=== PATIENT | female | born 1970 | race Two or more races ===

== ENCOUNTER 2018-10-18 13:45 | Emergency (ER) | payer SELFPAY ==
--- NOTE | 2018-10-18 15:01 | ER Document Report ---
ED Medical Screen (RME) - General Chief Complaint: Headache Stated Complaint: HEADACHE Time Seen by Provider: 10/18/18 14:53 Mode of Arrival: Ambulatory Information source: Patient Notes: Patient states she is no longer concerned about her headache that is not the problem she is here today for pelvic pain bilaterally. She states that it feels like pressure and feels like something is going to fall out. She states she has bladder pain and pain inside of her vagina. She states she does not have any vaginal discharge and has had no unprotected sex. She states she has not burning with urination she just feels a lot of pressure and pain. States she has a history of migraines but that is not the problem right now. She states she has had a complete hysterectomy. She has a history of depression high blood pressure migraines and arthritis. I have greeted and performed a rapid initial assessment of this patient. A comprehensive ED assessment and evaluation of the patient, analysis of test results and completion of medical decision making process will be conducted by an additional ED providers. Dictation of this chart was performed using voice recognition software; therefor e, there may be some unintended grammatical errors. TRAVEL OUTSIDE OF THE [place] IN LAST 30 DAYS: No - Related Data Allergies/Adverse Reactions: No Known Allergies Allergy (Unverified 10/18/18 13:46) Past Medical History Renal/ Medical History: Denies: Hx Peritoneal Dialysis
[2018-10-18 15:38] LABS: APPEARANCE,URINE CLEAR; BILIRUBIN,URINE NEGATIVE (NEGATIVE); COLOR,URINE YELLOW; GLUCOSE, URINE NEGATIVE (NEGATIVE); KETONES,URINE NEGATIVE (NEGATIVE); LEUKOCYTE ESTERASE,URINE NEGATIVE (NEGATIVE); NITRITE,URINE NEGATIVE (NEGATIVE); PROTEIN,URINE NEGATIVE (NEGATIVE); URINE SPECIFIC GRAVITY 1.019; UROBILINOGEN,URINE NEGATIVE mg/dL (<2.0)
[2018-10-18 15:39] LABS: ABSOLUTE EOSINOPHILS # (AUTO) 0.1 10^3/uL (0.0-0.6); ABSOLUTE LYMPHOCYTES (AUTO) 1.6 10^3/uL (0.5-4.7); ABSOLUTE MONOCYTES (AUTO) 0.6 10^3/uL (0.1-1.4); ABSOLUTE NEUT (AUTO) 3.2 10^3/uL (1.7-8.2); BASOPHILS % (AUTO) 0.5 % (0-2); EOSINOPHILS % (AUTO) 2.3 % (0-6); HEMOGLOBIN 13.1 g/dL (12.0-15.5); LYMPHOCYTES % (AUTO) 28.6 % (13-45); MEAN CORPUSCULAR HEMOGLOBIN 26.1 pg (27.0-33.4); MEAN CORPUSCULAR HGB CONC 32.8 g/dL (32.0-36.0); MEAN CORPUSCULAR VOLUME 79 fl (80-97); MONOCYTES % (AUTO) 10.1 % (3-13); PLATELET COUNT 248 10^3/uL (150-450); RED BLOOD COUNT 5.04 10^6/uL (3.72-5.28); RED CELL DISTRIBUTION WIDTH 14.7 % (11.5-14.0); SEGMENTED NEUTROPHILS % (AUTO) 58.5 % (42-78); TOTAL CELLS COUNTED % (AUTO) 100 %; WHITE BLOOD COUNT 5.5 10^3/uL (4.0-10.5)
[2018-10-18 16:02] LABS: ALANINE AMINOTRANSFERASE 34 U/L (9-52); ALBUMIN 4.5 g/dL (3.5-5.0); ALKALINE PHOSPHATASE 71 U/L (38-126); ANION GAP 10 (5-19); ASPARTATE AMINO TRANSFERASE 28 U/L (14-36); BILIRUBIN,DIRECT 0.2 mg/dL (0.0-0.4); BILIRUBIN,TOTAL 0.5 mg/dL (0.2-1.3); BLOOD UREA NITROGEN 14 mg/dL (7-20); CALCIUM 9.6 mg/dL (8.4-10.2); CARBON DIOXIDE 27 mmol/L (22-30); CHLORIDE 104 mmol/L (98-107); GLUCOSE 75 mg/dL (75-110); TOTAL PROTEIN 7.8 g/dL (6.3-8.2)
== END 2018-10-18 17:50 | disposition left against medical advice (07) ==
LOC: ER 13:45
DX: R10.2 Pelvic and perineal pain (principal); R39.89 Other symptoms and signs involving the genitourinary system; I10 Essential (primary) hypertension; Z90.710 Acquired absence of both cervix and uterus; Z53.20 Procedure and treatment not carried out because of patient's decision for unspecified reasons
CPT/HCPCS: 36415; 80053; 81001; 85025; 87086; 99281

== ENCOUNTER 2018-12-27 21:41 | Emergency (ER) | payer MEDICAID ==
[2018-12-27] MEDS ORDERED: ASPIRIN 81 MG TABLET, CHEWABLE PO ONE (21:46)
--- NOTE | 2018-12-28 00:27 | ER Document Report ---
ED Cardiac - General Chief Complaint: Chest Pain Stated Complaint: CHEST PAIN,DIFFICULTY BREATHING Time Seen by Provider: 12/28/18 00:25 Mode of Arrival: Ambulatory Information source: Patient, Relative Notes: HISTORY OF PRESENT ILLNESS: Patient is a 48-year-old female with no pertinent past medical history who presents with sharp left-sided chest pain that radiates underneath the left tin st that is been ongoing for the past 7 to 8 years, however got worse approximately 2 years ago after a breast biopsy. Patient reports symptoms are intermittent and occur randomly, worsened with movement, always sharp and stabbing in nature. Location: Left chest Onset: Several years ago Alleviation: None Provocation: Movement Quality: Sharp and stabbing Radiation: None Severity: Currently mild, moderate at worst Timing: Intermittent History of CAD: None Associated symptoms: Denies fevers or chills, cough or congestion, no shortness of breath, no swelling of the extremities REVIEW OF SYSTEMS: CONSTITUTIONAL : Denies fever or chills, no sweats. Denies recent illness. EENT: Denies eye, ear, throat, or mouth pain or symptoms. Denies nasal or sinus congestion. CARDIOVASCULAR: Positive for chest pain. Denies swelling of the legs. RESPIRATORY: Denies cough, cold, or chest congestion. Denies shortness of breath or difficulty breathing. Denies wheezing. GASTROINTESTINAL: Denies abdominal pain. Denies nausea, vomiting, or diarrhea. Denies constipation. GENITOURINARY: Denies difficulty urinating, painful urination, burning, frequency, or blood in urine. MUSCULOSKELETAL: Denies neck or back pain or joint pain or swelling. SKIN: Denies rash or skin lesions. HEMATOLOGIC : Denies easy bruising or bleeding. LYMPHATIC: Denies swollen, enlarged glands. NEUROLOGICAL: Denies altered mental status or loss of consciousness. Denies headache. Denies weakness or paralysis or loss of use of either side. Denies problems with gait or speech. Denies sensory or motor loss. PSYCHIATRIC: Denies anxiety or stress or depression. All other systems reviewed and negative. PHYSICAL EXAMINATION: GENERAL: Well-appearing, well-nourished and in no acute distress. HEAD: Atraumatic, normocephalic. No scalp deformity, depression, or crepitance. EYES: Pupils are 3 mm and equal/round/reactive to light, extraocular movements intact, sclera anicteric, conjunctiva are normal. ENT: Nares patent bilaterally, oropharynx. Moist mucous membranes. No tonsil hypertrophy. NECK: Normal range of motion, supple without lymphadenopathy. LUNGS: Breath sounds present, equal, and clear to auscultation bilaterally. No wheezes, rales, or rhonchi. HEART: Regular rate and rhythm without murmurs, rubs, or gallops. 2+ peripheral pulses. Normal capillary refill. ABDOMEN: Soft, nontender, nondistended. Normoactive bowel sounds. No guarding, no rebound. No masses appreciated. BACK: Normal contour, no midline tenderness. Rectal exam deferred. GENITAL/PELVIC: Deferred. EXTREMITIES: Normal range of motion, no pitting or edema. No cyanosis. NEUROLOGICAL: No focal neurological deficits. Moves all extremities spontaneously and on command. PSYCH: Normal mood, normal affect. No suicidal thoughts/ideations. No homicidal thoughts/ideations. No hallucinations. SKIN: Warm, dry, normal turgor, no rashes or lesions noted. ASSESSMENT AND PLAN: This patient is a 48-year-old female who presents with sharp left sided chest pain that is reproducible on exam. Appears consistent with musculoskeletal origin. 1. Will obtain labs, urine, troponin, and chest x-ray. 2. Will give Toradol and reassess. TRAVEL OUTSIDE OF THE [place] IN LAST 30 DAYS: No - HPI Patient complains to provider of: Chest pain Was the onset of pain: Sudden Is the pain a: Chronic problem Chest pain location: Pleuritic, Under breast Quality of pain: Sharp, Stabbing Chest pain radiation location: None Severity now: Mild Severity at worst: Severe Pain level currently: 1 Cardiac risk factors: None Positive cardiac history: No Associated symptoms: None Exacerbated by: Torso movement Relieved by: Rest Similar symptoms previously: Yes Recently seen / treated by doctor: No - Related Data Allergies/Adverse Reactions: No Known Allergies Allergy (Unverified 10/18/18 13:46) Past Medical History - General Information source: Patient, Relative - Social History Smoking Status: Never Smoker Chew tobacco use (# tins/day): No Frequency of alcohol use: None Drug Abuse: None Lives with: Family Family History: Reviewed & Not Pertinent Patient has suicidal ideation: No Patient has homicidal ideation: No - Past Medical History Cardiac Medical History: Reports: None Pulmonary Medical History: Reports: None EENT Medical History: Reports: None Neurological Medical History: Reports: None Endocrine Medical History: Reports: None Renal/ Medical History: Reports: None. Denies: Hx Peritoneal Dialysis Malignancy Medical History: Reports: None GI Medical History: Reports: None Musculoskeletal Medical History: Reports None Skin Medical History: Reports None Psychiatric Medical History: Reports: None Traumatic Medical History: Reports: None Infectious Medical History: Reports: None Past Surgical History: Reports: Hx Hysterectomy - Immunizations Immunizations up to date: Yes Hx Diphtheria, Pertussis, Tetanus Vaccination: Yes Review of Systems - Review of Systems Constitutional: No symptoms reported EENT: No symptoms reported Cardiovascular: See HPI, Chest pain Respiratory: No symptoms reported Gastrointestinal: No symptoms reported Genitourinary: No symptoms reported Female Genitourinary: No symptoms reported Musculoskeletal: No symptoms reported Skin: No symptoms reported Hematologic/Lymphatic: No symptoms reported Neurological/Psychological: No symptoms reported -: Yes All other systems reviewed and negative Physical Exam - Vital signs Vitals: Temp Pulse Resp BP Pulse Ox 97.6 F 62 20 123/80 99 12/27/18 22:26 12/27/18 22:26 12/27/18 22:26 12/27/18 22:26 12/27/18 22:26 Interpretation: Normal Course - Re-evaluation Re-evalutation: 12/28/18 01:59 Blood work, including cardiac enzymes, is negative. Will discharge the patient home with strict return precautions and follow-up with primary care. All results were explained to and discussed with the patient, and all questions addressed an d answered. The patient voices both understanding and agreeing with the plan. - Vital Signs Vital signs: Temp Pulse Resp BP Pulse Ox 97.8 F 62 19 151/91 H 100 12/28/18 02:01 12/27/18 22:26 12/28/18 02:01 12/28/18 02:01 12/28/18 02:01 - Laboratory Result Diagrams: 12/28/18 00:35 12/28/18 00:35 Laboratory results interpreted by me: 12/28/18 12/28/18 00:35 00:35 MCH 26.5 L RDW 15.0 H AST 42 H - Diagnostic Test Radiology reviewed: Image reviewed, Reports reviewed - EKG Interpretation by Me EKG shows normal: Sinus rhythm Rate: Normal Rhythm: NSR [place]/QRS: No: Right axis deviation, Left axis deviation, RBBB, LBBB, IVCD, LAHB/LAFB, LPHB/LPFB, Bifasicular block Voltage: No: Increased voltage, Consistant with LVH, Decreased voltage, Throughout, Limb leads P Waves: No: DONA, LAE, Absent, AV Dissociation, Other Heart block present: No: 1st Degree, Mobitz 1, Mobitz 2, CHB (3rd degree block) When compared to previous EKG there are: No significant change Discharge - Discharge Clinical Impression: Costochondritis Condition: Good Disposition: HOME, SELF-CARE Instructions: Chest Wall Pain ([facility]) Additional Instructions: You have been evaluated in the Emergency Department for chest pain. While here, you had blood work that was normal and it is now safe to be discharged home. Please follow-up with your primary physician as instructed in one week to be rechecked. Return to the Emergency Department if you experience worsening pain, difficulty breathing, or any other concerning symptoms. Prescriptions: Diclofenac Sodium 75 mg PO BID #30 tablet. Print Language: Yoruba
[2018-12-28 00:47] LABS: ABSOLUTE EOSINOPHILS # (AUTO) 0.2 10^3/uL (0.0-0.6); ABSOLUTE LYMPHOCYTES (AUTO) 1.6 10^3/uL (0.5-4.7); ABSOLUTE MONOCYTES (AUTO) 0.5 10^3/uL (0.1-1.4); BASOPHILS % (AUTO) 0.9 % (0-2); EOSINOPHILS % (AUTO) 3.3 % (0-6); HEMATOCRIT 40.4 % (36.0-47.0); HEMOGLOBIN 13.5 g/dL (12.0-15.5); LYMPHOCYTES % (AUTO) 30.4 % (13-45); MEAN CORPUSCULAR HEMOGLOBIN 26.5 pg (27.0-33.4); MEAN CORPUSCULAR HGB CONC 33.3 g/dL (32.0-36.0); MEAN CORPUSCULAR VOLUME 80 fl (80-97); MONOCYTES % (AUTO) 8.7 % (3-13); PLATELET COUNT 257 10^3/uL (150-450); RED BLOOD COUNT 5.08 10^6/uL (3.72-5.28); SEGMENTED NEUTROPHILS % (AUTO) 56.7 % (42-78); TOTAL CELLS COUNTED % (AUTO) 100 %; WHITE BLOOD COUNT 5.3 10^3/uL (4.0-10.5)
[2018-12-28] MEDS ORDERED: ASPIRIN 81 MG TABLET, CHEWABLE ONE (00:55)
[2018-12-28 01:02] LABS: ALBUMIN 4.5 g/dL (3.5-5.0); ALKALINE PHOSPHATASE 84 U/L (38-126); ANION GAP 9 (5-19); ASPARTATE AMINO TRANSFERASE 42 U/L (14-36); BILIRUBIN,DIRECT 0.1 mg/dL (0.0-0.4); BILIRUBIN,TOTAL 0.2 mg/dL (0.2-1.3); BLOOD UREA NITROGEN 13 mg/dL (7-20); CALCIUM 9.7 mg/dL (8.4-10.2); CARBON DIOXIDE 28 mmol/L (22-30); CHLORIDE 102 mmol/L (98-107); CREATINE KINASE 63 U/L (30-135); GLUCOSE 92 mg/dL (75-110); POTASSIUM 4.2 mmol/L (3.6-5.0); TOTAL PROTEIN 7.9 g/dL (6.3-8.2)
[2018-12-28 01:15] LABS: CREATINE KINASE MB < 0.22 ng/mL (<4.55); TROPONIN I < 0.012 ng/mL
[2018-12-28] MEDS ORDERED: KETOROLAC TROMETHAMINE 60 MG/2 ML SDV IM ONE (01:52)
[2018-12-28 02:17] VITALS: BP 151/91
--- NOTE | 2018-12-28 21:45 | EKG REPORT ---
SEVERITY:- OTHERWISE NORMAL ECG - SINUS RHYTHM BORDERLINE LEFT AXIS DEVIATION : Confirmed by: Mallory Rayo MD 28-Dec-2018 21:45:02
== END 2018-12-28 02:31 | disposition home or self-care (01) ==
LOC: ER 21:41
DX: M94.0 Chondrocostal junction syndrome [Tietze] (principal); R07.9 Chest pain, unspecified
CPT/HCPCS: 93005; 36415; 82553; 82550; 85025; 80053; 84484; 93010; J1885

== ENCOUNTER 2019-02-02 15:29 | Emergency (ER) | payer MEDICAID ==
--- NOTE | 2019-02-02 16:04 | ER Document Report ---
ED Medical Screen (RME) - General Chief Complaint: right flank pain Stated Complaint: PAIN RIGHT SIDE OF BODY Time Seen by Provider: 02/02/19 15:47 Mode of Arrival: Ambulatory Information source: Patient Notes: 48-year-old female presented to ED for complaint of right upper quadrant right flank pain since 2011 worse for the last 3 weeks. She states she had a hysterectomy in 2011 and has had pain off and on since then. She states that one time she was told she had some sand in something and then she was told that her uterus was dropping down and that she had some cyst somewhere so her female parts were removed. Interview was through an card lacer #[id number]. Patient states she has a history of depression migraines and arthritis. She denies use of tobacco alcohol or street drugs. I have greeted and performed a rapid initial assessment of this patient. A comprehensive ED assessment and evaluation of the patient, analysis of test results and completion of medical decision making process will be conducted by an additional ED providers. TRAVEL OUTSIDE OF THE [place] IN LAST 30 DAYS: No - Related Data Allergies/Adverse Reactions: No Known Allergies Allergy (Unverified 10/18/18 13:46) Past Medical History - Social History Frequency of alcohol use: None Drug Abuse: None Renal/ Medical History: Denies: Hx Peritoneal Dialysis Past Surgical History: Reports: Hx Hysterectomy - Immunizations Immunizations up to date: Yes Hx Diphtheria, Pertussis, Tetanus Vaccination: Yes Physical Exam - Vital signs Vitals: Temp Pulse Resp BP Pulse Ox 98.5 F 70 18 125/66 99 02/02/19 15:34 02/02/19 15:34 02/02/19 15:34 02/02/19 15:34 02/02/19 15:34 Course - Vital Signs Vital signs: Temp Pulse Resp BP Pulse Ox 98.5 F 70 18 125/66 99 02/02/19 15:34 02/02/19 15:34 02/02/19 15:34 02/02/19 15:34 02/02/19 15:34
[2019-02-02 16:27] LABS: ABSOLUTE EOSINOPHILS # (AUTO) 0.1 10^3/uL (0.0-0.6); ABSOLUTE LYMPHOCYTES (AUTO) 1.2 10^3/uL (0.5-4.7); ABSOLUTE MONOCYTES (AUTO) 0.5 10^3/uL (0.1-1.4); ABSOLUTE NEUT (AUTO) 3.9 10^3/uL (1.7-8.2); BASOPHILS % (AUTO) 0.4 % (0-2); EOSINOPHILS % (AUTO) 2.2 % (0-6); HEMATOCRIT 38.4 % (36.0-47.0); HEMOGLOBIN 13.2 g/dL (12.0-15.5); LYMPHOCYTES % (AUTO) 21.1 % (13-45); MEAN CORPUSCULAR HEMOGLOBIN 27.4 pg (27.0-33.4); MEAN CORPUSCULAR HGB CONC 34.3 g/dL (32.0-36.0); MEAN CORPUSCULAR VOLUME 80 fl (80-97); MONOCYTES % (AUTO) 8.3 % (3-13); PLATELET COUNT 238 10^3/uL (150-450); RED CELL DISTRIBUTION WIDTH 14.4 % (11.5-14.0); TOTAL CELLS COUNTED % (AUTO) 100 %; WHITE BLOOD COUNT 5.8 10^3/uL (4.0-10.5)
[2019-02-02 16:29] LABS: APPEARANCE,URINE SLIGHTLY-CLOUDY; BILIRUBIN,URINE NEGATIVE (NEGATIVE); COLOR,URINE YELLOW; GLUCOSE, URINE NEGATIVE (NEGATIVE); KETONES,URINE NEGATIVE (NEGATIVE); PROTEIN,URINE NEGATIVE (NEGATIVE); URINE SPECIFIC GRAVITY 1.016; UROBILINOGEN,URINE NEGATIVE mg/dL (<2.0)
[2019-02-02 16:42] LABS: ALBUMIN 4.5 g/dL (3.5-5.0); ALKALINE PHOSPHATASE 78 U/L (38-126); ANION GAP 10 (5-19); ASPARTATE AMINO TRANSFERASE 43 U/L (14-36); BILIRUBIN,DIRECT 0.2 mg/dL (0.0-0.4); BILIRUBIN,TOTAL 0.7 mg/dL (0.2-1.3); BLOOD UREA NITROGEN 13 mg/dL (7-20); CALCIUM 9.8 mg/dL (8.4-10.2); CARBON DIOXIDE 26 mmol/L (22-30); CHLORIDE 105 mmol/L (98-107); GLUCOSE 82 mg/dL (75-110); POTASSIUM 4.1 mmol/L (3.6-5.0)
--- NOTE | 2019-02-02 16:44 | RADIOLOGY REPORT (SQ) ---
EXAM DESCRIPTION: U/S ABDOMEN LIMITED W/O DOP COMPLETED DATE/TIME: 02/02/2019 4:36 pm REASON FOR STUDY: right upper quad COMPARISON: None. TECHNIQUE: Dynamic and static grayscale images acquired of the abdomen and recorded on PACS. Additio nal selected color Doppler and spectral images recorded. LIMITATIONS: None. FINDINGS: PANCREAS: No masses. Visualized pancreatic duct normal caliber. LIVER: Normal size Echo texture normal. No focal masses. LIVER VASCULATURE: Normal directional flow of the main portal vein and hepatic veins. GALLBLADDER: No stones. Normal wall thickness. No pericholecystic fluid. ULTRASOUND-DETECTED NOLEN'S SIGN: Negative. INTRAHEPATIC DUCTS AND COMMON DUCT: CBD and intrahepatic ducts normal caliber. No filling defects. INFERIOR VENA CAVA: Normal flow. AORTA: No aneurysm. RIGHT KIDNEY: Normal size. Normal echogenicity. No solid or suspicious masses. No hydronephros is. No calcifications. PERITONEAL AND RIGHT PLEURAL SPACE: No ascites or effusions. OTHER: No other significant findings. IMPRESSION: NORMAL RIGHT UPPER QUADRANT ULTRASOUND VISUALIZED. TECHNICAL DOCUMENTATION: JOB ID: [id number] [employer]- All Rights Reserved Reading location - IP/workstation name: [email or web address]
[2019-02-02] MEDS ORDERED: NORMAL SALINE 1000 ML 1,000 ML IV ONE (18:57)
[2019-02-02] MEDS ORDERED: FENTANYL CITRATE INJ/PF 100 MCG/2 ML AMPUL IV ONE (18:57)
--- NOTE | 2019-02-02 18:59 | ER Document Report ---
ED General - General Mode of Arrival: Ambulatory Information source: Patient TRAVEL OUTSIDE OF THE [place] IN LAST 30 DAYS: No - HPI Onset: Other - 7 years, worse x3 weeks Onset/Duration: Worse Quality of pain: Sharp Pain Level: 4 Associated symptoms: Other - Right flank, right lower quadrant. denies: Chest pain, Nonproductive cough, Productive cough, Fever, Nausea, Vomiting Exacerbated by: Denies Relieved by: Denies Similar symptoms previously: Yes Recently seen / treated by doctor: No <JOSE LUIS POWER - Last Filed: 02/02/19 20:21> <CHRIS BENNETT - Last Filed: 02/02/19 23:11> - General Chief Complaint: right flank pain Stated Complaint: PAIN RIGHT SIDE OF BODY Time Seen by Provider: 02/02/19 15:47 Primary Care Provider: DERRICK VAUGHAN MD [Primary Care Provider] - Follow up as needed Notes: Patient presents complaining of right flank pain that radiates around to right lower quadrant for the past 7 years. Patient states pain worsened over the past 3 weeks. Patient does report some dysuria. No fever, no nausea vomiting or diarrhea. Patient states symptoms started after having a hysterectomy. (JOSE LUIS POWER) - Related Data Allergies/Adverse Reactions: No Known Allergies Allergy (Unverified 10/18/18 13:46) Past Medical History - General Information source: Patient - Social History Smoking Status: Never Smoker Frequency of alcohol use: None Drug Abuse: None Occupation: None Lives with: Family Family History: Reviewed & Not Pertinent Patient has suicidal ideation: No Patient has homicidal ideation: No Neurological Medical History: Reports: Hx Migraine Renal/ Medical History: Denies: Hx Peritoneal Dialysis Past Surgical History: Reports: Hx Hysterectomy - Immunizations Immunizations up to date: Yes Hx Diphtheria, Pertussis, Tetanus Vaccination: Yes <JOSE LUIS POWER - Last Filed: 02/02/19 20:21> Review of Systems - Review of Systems Constitutional: No symptoms reported. denies: Fever, Recent illness EENT: No symptoms reported Cardiovascular: No symptoms reported. denies: Chest pain Respiratory: No symptoms reported Gastrointestinal: Abdominal pain. denies: Diarrhea, Nausea, Vomiting Genitourinary: Dysuria, Flank pain Female Genitourinary: No symptoms reported. denies: Vaginal discharge Musculoskeletal: Back pain Skin: No symptoms reported Hematologic/Lymphatic: No symptoms reported Neurological/Psychological: No symptoms reported <JOSE LUIS POWER - Last Filed: 02/02/19 20:21> Physical Exam - General General appearance: Appears well, Alert In distress: None - HEENT Head: Normocephalic, Atraumatic Eyes: Normal Conjunctiva: Normal Neck: Normal, Supple. No: Lymphadenopathy - Respiratory Respiratory status: No respiratory distress Chest status: Nontender Breath sounds: Normal. No: Rales, Rhonchi, Wheezing Chest palpation: Normal - Cardiovascular Rhythm: Regular Heart sounds: S1 appreciated, S2 appreciated Murmur: No - Abdominal Inspection: Normal Distension: No distension Bowel sounds: Normal Tenderness: Tender - Right lateral side of the right lower quadrant. No: Guarding Organomegaly: No organomegaly - Back Back: Normal, CVA tenderness - Right - Extremities General upper extremity: Normal inspection, Normal strength General lower extremity: Normal inspection, Normal strength - Neurological Neuro grossly intact: Yes Cognition: Normal [place] Coma Scale Eye Opening: Spontaneous Tess Coma Scale Verbal: Oriented Tess Coma Scale Motor: Obeys Commands [place] Coma Scale Total: 15 - Psychological Associated symptoms: Normal affect, Normal mood - Skin Skin Temperature: Warm Skin Moisture: Dry Skin Color: Normal <JOSE LUIS POWER - Last Filed: 02/02/19 20:21> - Vital signs Vitals: Temp Pulse Resp BP Pulse Ox 98.5 F 70 18 125/66 99 02/02/19 15:34 02/02/19 15:34 02/02/19 15:34 02/02/19 15:34 02/02/19 15:34 Course - Laboratory Result Diagrams: 02/02/19 16:05 02/02/19 16:05 <JOSE LUIS POWER - Last Filed: 02/02/19 20:21> - Laboratory Result Diagrams: 02/02/19 16:05 02/02/19 16:05 <CHRIS BENNETT - Last Filed: 02/02/19 23:11> - Re-evaluation Re-evalutation: 02/02/19 23:09 CT is unremarkable. I had a long conversation with patient at bedside, rBeana QUINONES was interpreting per patient request. Patient states that in addition to the pain on the right side which has been going on for a while she does have pain radiating around to the right flank although she does not currently. She does have some right muscular tenderness in her back and she states this is similar to her pain. Appears to be a muscular component. Abdomen is very benign now with no noted tenderness, swelling, guarding, hernia. CT is negative. Work-up is negative. I asked patient if she is having any other symptoms with her gas trointestinal tract and she tells me that she frequently belches, frequently has worse pain and bad reflux after eating, and frequently has generalized abdominal cramps. She tells me she thinks this is because of her hysterectomy years ago, however after discussion with patient decision was made to treat her for gastric intestinal inflammation with Carafate, Pepcid, nausea medication, and she will follow-up with primary care for additional management. She also tells me that years ago she had an endoscopy and they told her it was abnormal. She does have primary care follow-up to see after initiating treatments for additional management. Discussed return precautions in detail. Patient states appreciation and agreement. (CHRIS BENNETT) - Vital Signs Vital signs: Temp Pulse Resp BP Pulse Ox 97.4 F 64 18 119/74 98 02/02/19 20:34 02/02/19 20:34 02/02/19 20:34 02/02/19 20:34 02/02/19 20:34 - Laboratory Laboratory results interpreted by me: 02/02/19 02/02/19 16:05 16:05 RDW 14.4 H AST 43 H Discharge <JOSE LUIS POWER - Last Filed: 02/02/19 20:21> <CHRIS BENNETT - Last Filed: 02/02/19 23:11> - Discharge Clinical Impression: Flank pain Abdominal pain Qualifiers: Abdominal location: generalized Qualified Code(s): R10.84 - Generalized abdominal pain Condition: Stable Disposition: HOME, SELF-CARE Additional Instructions: Your imaging and lab test today do not show any concerning findings. Your back exam suggests your pain is muscular. Heat to the area can help. Your symptoms and examination indicate gastritis/esophagitis (inflammation of your gastrointestinal tract). Take Phenergan for nausea, take Carafate and Pepcid as prescribed to help treat this, you can take additional Rolaids, Tums, Maalox, etc. if needed. You can take Tylenol for pain. Avoid NSAIDs, alcohol, smoking, caffeine, spicy food. Start with clear fluids, progress to bland diet. Follow-up with primary care for additional evaluation and treatment including possible H. pylori testing. Return if you worsen including uncontrolled vomiting, vomiting blood, black stools, severe pain, fever of 100.4 or greater, or any other concerning or worsening symptoms. Prescriptions: Sucralfate [Carafate 1 gm Tablet] 1 gm PO QID #20 tablet Famotidine [Pepcid 20 mg Tablet] 20 mg PO BID #20 tablet Promethazine HCl [Phenergan 25 mg Tablet] 25 mg PO Q6H PRN #20 tablet PRN Reason: Referrals: DERRICK VAUGHAN MD [Primary Care Provider] - Follow up as needed
--- NOTE | 2019-02-02 22:12 | RADIOLOGY REPORT (SQ) ---
CT ABDOMEN PELVIS WITH IV CONTRAST EXAM DATE: 02/02/2019 6:57 PM PHARMACY TECHNICIAN ASSISTANT HISTORY: Right flank pain. COMPARISON: None. TECHNIQUE: CT scan of the abdomen and pelvis was performed with IV contrast. This exam was performed according to our departmental dose-optimization program, which includes automated exposure control, adjustment of the mA and/or kV according to patient size and/or use of iterative reconstruction technique. FINDINGS: The lung bases are clear. No pleural or pericardial effusions. There is no hiatal hernia. The liver, spleen, pancreas, gallbladder, adrenal glands, and kidneys are unremarkable. No urinary stones are seen. There has been a prior hysterectomy. No small bowel obstruction. The appendix is normal. There is no evidence of diverticulitis. No intraperitoneal free fluid or free air is identified. The aorta is normal caliber. No acute bony findings are seen. There is no pathologic body wall hernia. IMPRESSION: No acute abdominal or pelvic findings.
[2019-02-02 23:17] VITALS: BP 120/72
== END 2019-02-02 23:17 | disposition home or self-care (01) ==
LOC: ER 15:29
DX: R10.84 Generalized abdominal pain (principal); R10.9 Unspecified abdominal pain; R10.31 Right lower quadrant pain; R30.0 Dysuria; Z90.710 Acquired absence of both cervix and uterus
CPT/HCPCS: 36415; 83690; 85025; 80053; 81001; 76705; 74177; J3010; J7030; 96361; 96374; 99284

== ENCOUNTER 2019-02-06 10:02 | Emergency (ER) | payer MEDICAID ==
[2019-02-06] MEDS ORDERED: FAMOTIDINE 20 MG TABLET PO ONE ×3 (10:23→14:02)
[2019-02-06] MEDS ORDERED: DIPHENHYDRAMINE HCL 25 MG CAPSULE PO ONE ×3 (10:23→14:03)
[2019-02-06] MEDS ORDERED: PREDNISONE 20 MG TABLET PO ONE ×2 (10:23→13:00)
--- NOTE | 2019-02-06 10:31 | ER Document Report ---
ED Medical Screen (RME) - General Chief Complaint: Rash Stated Complaint: RASH Time Seen by Provider: 02/06/19 10:17 Primary Care Provider: DERRICK VAUGHAN MD [Primary Care Provider] - Follow up as needed TRAVEL OUTSIDE OF THE [place] IN LAST 30 DAYS: No - HPI Notes: 02/06/19 10:24 This 48-year-old female to the emergency department with complaints of persistent chest pain and pain down into her abdomen for the past 5 days and now with itchy rash. She was seen here on [address] scan which was unremarkable. She was discharged with Pepcid, antiemetics. But she did not fill them. She states that after she was seen she broke out in this diffuse rash to chest abdomen and legs that is very itchy. Denies any fevers or chills. States that she continues to have chest pain is worse with deep breath. She does not smoke but she does have a history of high blood pressure. She does not have hyperlipidemia or diabetes. There is no family history of heart disease. I performed a brief medical screening exam on this patient and determined he needs further management and evaluation by means at ER provider. I placed initial orders to help expedite in his treatment plan today to include lab work and medications. - Related Data Allergies/Adverse Reactions: No Known Allergies Allergy (Verified 02/06/19 10:17) Past Medical History - Social History Chew tobacco use (# tins/day): No Frequency of alcohol use: None Drug Abuse: None Neurological Medical History: Reports: Hx Migraine Renal/ Medical History: Denies: Hx Peritoneal Dialysis Past Surgical History: Reports: Hx Hysterectomy - Immunizations Immunizations up to date: Yes Hx Diphtheria, Pertussis, Tetanus Vaccination: Yes Physical Exam - Vital signs Vitals: Temp Pulse Resp BP Pulse Ox 98.0 F 70 16 119/75 100 02/06/19 10:11 02/06/19 10:11 02/06/19 10:11 02/06/19 10:11 02/06/19 10:11 Course - Vital Signs Vital signs: Temp Pulse Resp BP Pulse Ox 98.0 F 70 16 119/75 100 02/06/19 10:11 02/06/19 10:11 02/06/19 10:11 02/06/19 10:11 02/06/19 10:11 Doctor's Discharge - Discharge Referrals: DERRICK VAUGHAN MD [Primary Care Provider] - Follow up as needed
--- NOTE | 2019-02-06 10:57 | RADIOLOGY REPORT (SQ) ---
EXAM DESCRIPTION: CHEST 2 VIEWS COMPLETED DATE/TIME: 02/06/2019 10:47 am REASON FOR STUDY: chest pain COMPARISON: None. EXAM PARAMETERS: NUMBER OF VIEWS: two views TECHNIQUE: Digital Frontal and Lateral radiographic views of the chest acquired. RADIATION DOSE: NA LIMITATIONS: none FINDINGS: LUNGS AND PLEURA: No consolidation, pleural effusion or pneumothorax. MEDIASTINUM AND HILAR STRUCTURES: No mediastinal or hilar contour abnormality. HEART AND VASCULAR STRUCTURES: The cardiac silhouette and pulmonary vasculature are within normal contreras its. BONES: No acute findings. HARDWARE: None. OTHER: No other finding. IMPRESSION: No acute cardiopulmonary process. TECHNICAL DOCUMENTATION: JOB ID: [id number] [employer]- All Rights Reserved Reading location - IP/workstation name: [email or web address]
[2019-02-06 11:30] LABS: ABSOLUTE EOSINOPHILS # (AUTO) 0.3 10^3/uL (0.0-0.6); ABSOLUTE LYMPHOCYTES (AUTO) 0.9 10^3/uL (0.5-4.7); ABSOLUTE MONOCYTES (AUTO) 0.5 10^3/uL (0.1-1.4); ABSOLUTE NEUT (AUTO) 3.7 10^3/uL (1.7-8.2); BASOPHILS % (AUTO) 0.3 % (0-2); EOSINOPHILS % (AUTO) 4.8 % (0-6); HEMATOCRIT 39.6 % (36.0-47.0); HEMOGLOBIN 13.5 g/dL (12.0-15.5); LYMPHOCYTES % (AUTO) 16.8 % (13-45); MEAN CORPUSCULAR HEMOGLOBIN 27.2 pg (27.0-33.4); MEAN CORPUSCULAR VOLUME 80 fl (80-97); MONOCYTES % (AUTO) 9.5 % (3-13); PLATELET COUNT 231 10^3/uL (150-450); RED BLOOD COUNT 4.95 10^6/uL (3.72-5.28); RED CELL DISTRIBUTION WIDTH 14.2 % (11.5-14.0); SEGMENTED NEUTROPHILS % (AUTO) 68.6 % (42-78); TOTAL CELLS COUNTED % (AUTO) 100 %; WHITE BLOOD COUNT 5.4 10^3/uL (4.0-10.5)
[2019-02-06 11:55] LABS: ALBUMIN 4.6 g/dL (3.5-5.0); ALKALINE PHOSPHATASE 72 U/L (38-126); ANION GAP 13 (5-19); ASPARTATE AMINO TRANSFERASE 37 U/L (14-36); BILIRUBIN,DIRECT 0.1 mg/dL (0.0-0.4); BILIRUBIN,TOTAL 0.5 mg/dL (0.2-1.3); BLOOD UREA NITROGEN 12 mg/dL (7-20); CALCIUM 9.8 mg/dL (8.4-10.2); CARBON DIOXIDE 26 mmol/L (22-30); CHLORIDE 104 mmol/L (98-107); GLUCOSE 73 mg/dL (75-110); POTASSIUM 3.9 mmol/L (3.6-5.0); TOTAL PROTEIN 8.1 g/dL (6.3-8.2)
[2019-02-06] MEDS ORDERED: PREDNISONE 20 MG TABLET ONE (12:40)
[2019-02-06] MEDS ORDERED: DIPHENHYDRAMINE HCL 25 MG CAPSULE ONE (12:40)
--- NOTE | 2019-02-06 14:09 | ER Document Report ---
ED General - General Chief Complaint: Rash Stated Complaint: RASH Time Seen by Provider: 02/06/19 10:17 Primary Care Provider: DERRICK VAUGHAN MD [Primary Care Provider] - Follow up in 3-5 days Notes: Patient is a 48-year-old female who presents emergency department with a chief complaint of chest pain and a rash. Patient was seen 4 days ago here in the emergency department and was sent home on Pepcid and Carafate for chest pain, as she ended up having gastritis. Patient states that she is in a rash this past Tuesday. Patient did not fill her medications that she was given the other day. Patient states that she is more itchy than anything. I have offered Carmen translation, but the patient refused and would like to have her son translate for her. TRAVEL OUTSIDE OF THE [place] IN LAST 30 DAYS: No - Related Data Allergies/Adverse Reactions: No Known Allergies Allergy (Verified 02/06/19 10:17) Past Medical History - Social History Smoking Status: Never Smoker Chew tobacco use (# tins/day): No Frequency of alcohol use: None Drug Abuse: None Family History: Reviewed & Not Pertinent Patient has suicidal ideation: No Patient has homicidal ideation: No Neurological Medical History: Reports: Hx Migraine Renal/ Medical History: Denies: Hx Peritoneal Dialysis Past Surgical History: Reports: Hx Hysterectomy - Immunizations Immunizations up to date: Yes Hx Diphtheria, Pertussis, Tetanus Vaccination: Yes Review of Systems - Review of Systems Notes: REVIEW OF SYSTEMS: CONSTITUTIONAL : Denies recent illness. Denies recent unintentional weight loss. Denies fever, chills, or sweats. EENT: Denies eye, ear, throat, or mouth pain, discharge, or symptoms. Denies nasal or sinus congestion. CARDIOVASCULAR: See HPI. RESPIRATORY: Denies shortness of breath, cough, congestion, difficulty breathing , or wheezing. GASTROINTESTINAL: Denies nausea, vomiting, and diarrhea. Denies abdominal pain. Denies constipation. GENITOURINARY: Denies difficulty urinating, burning, blood in urine, urgency or frequency. MUSCULOSKELETAL: Denies neck and back pain. Denies joint pain or swelling. SKIN: See HPI. HEMATOLOGIC : Denies easy bruising or bleeding. LYMPHATIC: Denies swollen, painful, enlarged glands. NEUROLOGICAL: Denies no numbness or tingling denies weakness. Denies headache. Denies altered mental status. Denies alteration in speech. PSYCHIATRIC: Denies stress, anxiety, alteration in sleep patterns, or depression. All other systems reviewed and negative. Physical Exam - Vital signs Vitals: Temp Pulse Resp BP Pulse Ox 98.0 F 70 16 119/75 100 02/06/19 10:11 02/06/19 10:11 02/06/19 10:11 02/06/19 10:11 02/06/19 10:11 - Notes Notes: PHYSICAL EXAMINATION: GENERAL: Appears well, healthy, well-nourished, no acute distress. HEAD: Normocephalic, atraumatic. EYES: PERRL, conjunctiva normal, all extraocular movements intact, sclera nonicteric ENT: Moist mucous membranes. NECK: Supple, no noticeable swelling, redness, rash. Normal range of motion. LUNGS: Equal breath sounds bilaterally and clear to auscultation. No wheezes rales or rhonchi. CARDIOVASCULAR: S1-S2, regular rate, regular rhythm. Radial pulses 2+, normal. ABDOMEN: Normoactive bowel sounds. Soft, nontender, no guarding, no rebound tenderness, and no masses palpated. EXTREMITIES: Normal strength and range of motion, no pitting or edema. No cyanosis. NEUROLOGICAL: Moves all extremities upon command. Strength 5/5 in all extremities. PSYCH: Normal mood, normal affect. SKIN: Warm, dry. No lesions, ulcerations noted. Normal skin turgor. Rash noted to torso, upper extremities, back. Blanchable. Course - Re-evaluation Re-evalutation: 02/06/19 15:30 Patient's rash has greatly improved. Patient states that she still has a little bit of chest discomfort. She will receive a dose of Carafate. I have advised the patient to follow-up with her primary care provider. hCG ordered in triage was negative. Chest x-ray was unremarkable. Patient's glucose was 73. I gave her something to eat. Other chemistries were normal. Hematology is unremarkable. No leukocytosis noted. Follow-up precautions were given. Verbal discharge instructions were given to the patient. They verbalized understanding. They are stable for discharge. - Vital Signs Vital signs: Temp Pulse Resp BP Pulse Ox 97.8 F 72 16 122/78 99 02/06/19 15:31 02/06/19 15:31 02/06/19 15:31 02/06/19 15:31 02/06/19 15:31 - Laboratory Result Diagrams: 02/06/19 10:50 02/06/19 10:50 Laboratory results interpreted by me: 02/06/19 02/06/19 10:50 10:50 RDW 14.2 H Glucose 73 L AST 37 H - EKG Interpretation by Me Additional EKG results interpreted by me: 02/06/19 15:35 Sinus rhythm. Rate 66. DE 152; QRS 78; QT 396; QTc 415. No ST elevations or depressions noted. No acute change from previous EKG done on 12/27/2018. Discharge - Discharge Clinical Impression: Rash, Epigastric pain Condition: Stable Disposition: HOME, SELF-CARE Additional Instructions: You were seen today in the emergency department for chest pain and rash. Your labs are normal. Your chest x-ray was normal. Her EKG was normal. There is a possibility that your rash is due to anxiety. Please follow-up with your primary care provider in regards to this visit. Please also make sure you take the medications that were given to you the other day. You are also being prescribed Benadryl. Make sure you take this around the clock for itchiness and a rash. Call your primary care provider this afternoon or tomorrow morning to make an appointment for next week. Prescriptions: Diphenhydramine HCl [Benadryl] 25 mg PO Q4HP PRN #20 capsule PRN Reason: Rash Referrals: DERRICK VAUGHAN MD [Primary Care Provider] - Follow up in 3-5 days
[2019-02-06] MEDS ORDERED: SUCRALFATE 1 GM TABLET PO ONE (15:30)
[2019-02-06 15:35] VITALS: BP 122/78
--- NOTE | 2019-02-06 16:16 | EKG REPORT ---
SEVERITY:- BORDERLINE ECG - SINUS RHYTHM BORDERLINE LEFT AXIS DEVIATION CONSIDER ANTERIOR INFARCT : Confirmed by: Mallory Rayo MD 06-Feb-2019 16:16:19
== END 2019-02-06 16:06 | disposition home or self-care (01) ==
LOC: ER 10:02
DX: R21 Rash and other nonspecific skin eruption (principal); R10.13 Epigastric pain; R07.9 Chest pain, unspecified; Z90.710 Acquired absence of both cervix and uterus
CPT/HCPCS: 93005; 36415; 85025; 81025; 80053; 84484; 71046; 93010; J3490 ×3; J7512

== ENCOUNTER → 2019-05-16 | Outpatient (CLI) | payer MEDICAID ==
--- NOTE | 2019-05-16 12:33 | WOMENS IMAGING REPORT ---
EXAM DESCRIPTION: 3D SCREENING MAMMO BILAT COMPLETED DATE/TIME: 05/16/2019 8:02 am REASON FOR STUDY: Z12.31 ENCOUNTER FOR SCREENING MAMMOGRAM FOR MALIGNANT NEOPLASM OF BREAST Z12.31 ENCNTR SCREEN MAMMOGRAM FOR MALIGNANT NEOPLASM OF WESLY COMPARISON: None. EXAM PARAMETERS: Standard craniocaudal and mediolateral oblique views of each breast recorded using digital acquisition and breast tomosynthesis. Read with the assistance of CAD. .[facility] - [employer] Version 9.2 LIMITATIONS: None. FINDINGS: RIGHT BREAST MASSES: No suspicious masses. CALCIFICATIONS: There is a small group of calcifications in the central right breast for which furthe r imaging evaluation is required. ARCHITECTURAL DISTORTION: None. ASYMMETRY: None noted. OTHER: No other significant findings. LEFT BREAST MASSES: No suspicious masses. CALCIFICATIONS: No new or suspicious calcifications. ARCHITECTURAL DISTORTION: None. ASYMMETRY: There is a focal asymmetry in the medial inferior left breast for which further imaging ev aluation is required. OTHER: 2 left breast biopsy markers are separate from the finding. IMPRESSION: 1. Calcifications in the right central breast. Further evaluation with diagnostic mammogram includin g magnification images is required. 2. Focal asymmetry inferior medial left breast. Further evaluation with diagnostic mammogram includi ng spot compression images and possible ultrasound recommended. 0 Incomplete: Needs Additional Imaging Evaluation and/or prior Mammograms for Comparison. BREAST DENSITY: b. There are scattered areas of fibroglandular density. BIRAD: ASSESSMENT: 0 Incomplete: Needs Additional Imaging Evaluation and/or prior Mammograms for C omparison. RECOMMENDATION: RECOMMENDED FOLLOW-UP: Bilateral diagnostic mammogram and possible ultrasound. The patient will be contacted for additional imaging. COMMENT: The patient has been notified of the results by letter per [place] requirements. Additional no tification policies are in place for contacting patient with suspicious or incomplete findings. Quality ID #[id number]: The [employer] recommends an annual screening mammogram for women aged 40 years or over. This facility utilizes a reminder system to ensure that all patients receive reminder letters, and/or direct phone calls for appointments. This includes reminders for routine scr eening mammograms, diagnostic mammograms, or other Breast Imaging Interventions when appropriate. Th is patient will be placed in the appropriate reminder system. TECHNICAL DOCUMENTATION: FINDING NUMBER: (1) ASSESSMENT: (1) JOB ID: [id number] 2010 [employer]- All Rights Reserved Reading location - IP/workstation name: [email or web address]
== END ==
LOC: WI 08:24
PROVIDERS: ATTEND Family Medicine
DX: Z12.31 Encounter for screening mammogram for malignant neoplasm of breast (principal)
CPT/HCPCS: 77063; 77067

== ENCOUNTER → 2019-10-10 | Outpatient (CLI) | payer MEDICAID ==
--- NOTE | 2019-10-10 13:28 | WOMENS IMAGING REPORT ---
EXAM DESCRIPTION: BILAT DIAGNOSTIC MAMMO W/CAD IMAGES COMPLETED DATE/TIME: 10/10/2019 1:05 pm REASON FOR STUDY: R92.2 BILATERAL DIAGNOSTIC MAMMOGRAM R92.2 INCONCLUSIVE MAMMOGRAM COMPARISON: 05/16/2019 EXAM PARAMETERS: Compression magnification craniocaudal and mediolateral oblique views of each breas t recorded using digital acquisition. Bilateral 90 whole breast mediolateral views Read with the assistance of CAD: .[facility] - R2 [employer] Version 9.2 LIMITATIONS: None. FINDINGS: RIGHT BREAST MASSES: No suspicious masses. CALCIFICATIONS: Benign-appearing calcifications deep central right breast ARCHITECTURAL DISTORTION: None. ASYMMETRY: None noted. OTHER: No other significant findings. LEFT BREAST MASSES: No suspicious masses. CALCIFICATIONS: No new or suspicious calcifications. ARCHITECTURAL DISTORTION: None. ASYMMETRY: None noted. OTHER: Patient has a large keloid scar over the left breast 12 o'clock position. Old biopsy clip deep left breast in the chest wall. IMPRESSION: No mammographic evidence for malignancy bilaterally. BREAST DENSITY: b. There are scattered areas of fibroglandular density. BIRAD: ASSESSMENT: 2 Benign findings. RECOMMENDATION: RECOMMENDED FOLLOW UP: Please continue yearly bilateral screening mammography/ tomos ynthesis in April 2020 SPECIFIC INTERVENTION/IMAGING/CONSULTATION RECOMMENDED:No additional intervention/ imaging/consultati on needed at this time. COMMUNICATION:The negative/benign results were communicated to the patient. COMMENT: The patient has been notified of the results by letter per [place] requirements. Additional no tification policies are in place for contacting patient with suspicious or incomplete findings. Quality ID #[id number]: The [employer] recommends an annual screening mammogram for women aged 40 years or over. This facility utilizes a reminder system to ensure that all patients receive reminder letters, and/or direct phone calls for appointments. This includes reminders for routine scr eening mammograms, diagnostic mammograms, or other Breast Imaging Interventions when appropriate. Th is patient will be placed in the appropriate reminder system. TECHNICAL DOCUMENTATION: FINDING NUMBER: (1) ASSESSMENT: (1) JOB ID: [id number] 2010 [employer]- All Rights Reserved Reading location - IP/workstation name: [email or web address]
== END ==
LOC: WI 12:24
PROVIDERS: ATTEND Family Medicine
DX: L91.0 Hypertrophic scar (principal)
CPT/HCPCS: 77066